=== PATIENT | male | born 1950 | race Hispanic/Latino ===

== ENCOUNTER 2017-03-09 07:08 | Outpatient (CLI) | payer MEDICARE, MEDICAID | END 2017-03-09 07:09 | disposition home or self-care (01) | LOC: BICMRI 07:08 | PROVIDERS: ATTEND Nurse Practitioner Family | DX: M25.551 Pain in right hip (principal); M54.5 Low back pain; M79.2 Neuralgia and neuritis, unspecified; M48.14 Ankylosing hyperostosis [Forestier], thoracic region; M99.82 Other biomechanical lesions of thoracic region; M16.11 Unilateral primary osteoarthritis, right hip; Z98.1 Arthrodesis status ==

== ENCOUNTER 2018-08-03 14:59 | Outpatient (CLI) | payer MEDICARE, MEDICAID ==
--- NOTE | 2018-08-03 15:47 | MRI ---
MRI Lumbar Spine WO Con History: [M 25.552 left hip pain. M 79.2 neuralgia and neuritis] Comparison: CT abdomen and pelvis 2017 Findings: Mild bilateral symmetric posterior paraspinal muscle atrophy. No hydronephrosis. Aortic con tour is not aneurysmal. No retroperitoneal adenopathy. There is straightening of the lumbar spine with loss of normal lumbar lordosis. The conus medullaris terminates near the superior endplate of L1. No marrow infiltrative process. Levels are as follows: L1/L2: Circumferential disc osteophyte complex. This does have some right-sided interosseous bridging and the extraforaminal zone. Moderate right neural foraminal narrowing due to this osseous bridge. L2/L3: Moderate degenerative disc space height loss. Circumferential disc osteophyte complex. Minimal effacement of the ventral CSF space. A right extraforaminal osseous bridge causes moderate right neural foraminal narrowing with abutment of the exiting right nerve root. L3/L4: Disc desiccation. Low-grade circumferential disc osteophyte complex. Moderate facet arthrosis. Osseous bridge on the right causes moderate right neural foraminal narrowing with abutment of the exiting nerve root. L4/L5: Mild degenerative disc space height loss. Moderate to severe right and moderate left facet art hropathy. Right extraforaminal osseous bridge causes moderate narrowing of the right neural foramen with abutment of the exiting nerve root. Only mild left neural foraminal narrowing. L5/S1: Low-grade degenerative disc space height loss. Left subfrontal disc osteophyte complex complex causes mild left neural foraminal narrowing. Impression: Straightened lumbar spine with loss of normal lordosis likely sequelae of diffuse idiopat hic skeletal hyperostosis on the right. There is osseous bridging which does cause multilevel neural foraminal narrowing with nerve root abutment.
== END 2018-08-03 15:00 | disposition home or self-care (01) ==
LOC: TBSIIMAG 14:59
PROVIDERS: ATTEND Nurse Practitioner Acute Care
DX: M25.552 Pain in left hip (principal); M25.551 Pain in right hip; G90.511 Complex regional pain syndrome I of right upper limb; M79.2 Neuralgia and neuritis, unspecified; M48.061 Spinal stenosis, lumbar region without neurogenic claudication; M48.07 Spinal stenosis, lumbosacral region
CPT/HCPCS: 72148

== ENCOUNTER 2019-05-28 12:11 | Observation (INO) | payer MEDICARE, MEDICAID ==
[2019-05-28 12:44] LABS: #Eosinphils 0.6 thou/uL (0.0-0.7); #Lymphocytes 1.9 thou/uL (1.20-3.40); #Monocytes 0.6 thou/uL (0.11-0.59); #Neutrophils 6.6 thou/uL (1.40-6.50); %Basophils 0.1 % (0.0-1.0); %Eosinophils 6.1 % (0.0-10.0); %Monocytes 6.2 % (0.0-10.0); %Neutrophils 67.6 % (42.0-75.0); Mean Corpuscular HGB CONC 34.2 g/dL (32.0-36.0); Mean Corpuscular Hemoglobin 28.3 pg (27.0-31.0); Mean Corpuscular Volume 82.8 fL (78.0-98.0); Mean Platelet Volume 8.1 fL (7.4-10.4); Platelet Count 243 thou/uL (130-400); RBC Distribution Width 11.9 % (11.5-14.5); Red Blood Cell (RBC) Count 4.58 mill/uL (4.70-6.10); White Blood Cell (WBC) Count 9.7 thou/uL (4.8-10.8)
[2019-05-28 13:06] LABS: ALT (SGPT) 13 U/L (8-55); AST (SGOT) 12 U/L (5-34); Albumin 4.1 g/dL (3.4-4.8); Alkaline Phosphatase 99 U/L (40-110); Anion Gap 13 mmol/L (10-20); BUN (Urea Nitrogen) 12 mg/dL (8.4-25.7); Bilirubin, Total 0.6 mg/dL (0.2-1.2); Calc. Creatinine Clearance 0 mL/min (70-130); Calcium 8.9 mg/dL (7.8-10.44); Carbon Dioxide 26 mmol/L (23-31); Chloride 98 mmol/L (98-107); Estimated GFR-MDRD 65; Globulin 3.6 g/dL (2.4-3.5); Glucose 217 mg/dL (80-115); Potassium 3.8 mmol/L (3.5-5.1); Protein, Total 7.7 g/dL (5.8-8.1); Sodium 133 mmol/L (136-145)
--- NOTE | 2019-05-28 13:27 | RAD ---
XR Chest Pa Lat STANDARD History: Chest pain Comparison: Chest radiograph 2017 Findings: Lungs are clear. No pneumothorax or effusion. Cardiac silhouette and mediastinal contours a re similar. No acute osseous abnormality. Impression: No acute intrathoracic abnormality.
[2019-05-28] MEDS ORDERED: Nitroglycerin 0.4 MG TAB 1 EACH ONE (14:41)
[2019-05-28] MEDS ORDERED: Aspirin 325 MG TAB ONE (14:41)
[2019-05-28 16:24] LABS: Troponin I Less than 0.010 ng/mL (< 0.028)
[2019-05-28 17:26] VITALS: BMI 33.4
[2019-05-28 19:23] LABS: Troponin I 0.012 ng/mL (< 0.028)
[2019-05-28] MEDS: Famotidine 20 MG TAB PO SCH (20:48)
[2019-05-28 21:25] LABS: Troponin I Less than 0.010 ng/mL (< 0.028)
--- NOTE | 2019-05-28 23:01 | HP ---
CHIEF COMPLAINT: Chest pain. HISTORY OF PRESENT ILLNESS: Mr. Marcus is a 69-year-old male with past medical history of hypertension, hyperlipidemia, diabetes mellitus, among others, presented to the emergency room with substernal chest pain that started earlier this morning. Also, the patient has been having lightheadedness. Denies shortness of breath or palpitations or syncope. Workup in the emergency room including initial troponin and EKG, no acute findings. Given the patient's presentation and risk factors, the patient is being admitted to the hospital for further management. PAST MEDICAL HISTORY: As mentioned above in history of present illness. PAST SURGICAL HISTORY: 1. Left hip leigh placement. 2. Right elbow surgery. SOCIAL HISTORY: The patient drinks socially. The patient smokes cigarettes daily about one pack a day. FAMILY HISTORY: Reviewed and noncontributory. ALLERGIES: NO KNOWN ALLERGIES. HOME MEDICATIONS: Please see home medication reconciliation form for updated medications. REVIEW OF SYSTEMS: Review of 14 systems negative except what is mentioned in the history of present illness. PHYSICAL EXAMINATION: GENERAL: The patient is awake, alert, does not appear to be in acute distress. VITAL SIGNS: Blood pressure is 140/78, pulse is 81, respiratory rate is 17, pulse oximetry is 100% on room air. HEAD: Normocephalic, atraumatic. NECK: Supple. No JVD. CHEST: Fair bilateral air entry. HEART: S1, S2. Regular. ABDOMEN: Soft, nontender. Bowel sounds present. NEUROLOGIC: Awake, alert, oriented x3. PSYCHIATRIC: Normal mood. EXTREMITIES: No clubbing or cyanosis. LABORATORY DATA: WBC 9.7, hemoglobin 13, platelets 243. Sodium 133, potassium 3.8, BUN is 12, creatinine 1.1. Chest x-ray, no acute findings. ASSESSMENT AND PLAN: 1. Acute chest pain, rule out acute coronary syndrome. 2. Hypertension. 3. Hyperlipidemia. 4. Diabetes mellitus with hyperglycemia. 5. Severe smoker. PLAN: 1. Admit. 2. Telemetry monitoring. 3. Aspirin. 4. Serial troponins. 5. We will consider stress testing in a.m. 6. Reconcile home medications. 7. DVT prophylaxis as appropriate. 8. Expected length of stay at least 1 midnight if the patient is stable and further workup negative. Job ID: [id number]
[2019-05-29] MEDS: Acetaminophen 325 MG TAB PO PRN ×2 (02:50→13:23)
[2019-05-29] MEDS ORDERED: Aspirin 300 MG Suppository PR SCH (09:00)
[2019-05-29] MEDS ORDERED: ADENOSINE 60 MG/20 ML VIAL ONE (09:05)
--- NOTE | 2019-05-29 11:17 | NM ---
EXAM: Nuclear Medicine Cardiac SPECT with EF and wall motion: HISTORY: Protocol: Exam was performed using adenosine protocol. The patient is injected with 29.3 millicuries of technetium 99m sestamibi intravenously for stress im ages. The patient is injected with 10.5 millicuries of technetium 99 sestamibi intravenously for resting im ages. Multiple SPECT images are performed in the short axis, vertical long axis, and horizontal long axis. FINDINGS: No scan evidence for infarct or ischemia. TID:1.18 LHR:0.31 EDV:95 mL EF:60% Wall motion:Normal IMPRESSION: Unremarkable cardiac SPECT with EF and wall motion.
[2019-05-29 12:12] VITALS: TEMP 97.9
[2019-05-29] MEDS ORDERED: Lisinopril 5 MG TAB PO SCH ×2 (12:15→21:00)
[2019-05-29] MEDS ORDERED: cloNIDine 0.1 MG TAB PO PRN (12:57)
[2019-05-29] MEDS: Famotidine 20 MG TAB PO SCH (13:16)
[2019-05-29 14:21] VITALS: BP 168/78
--- NOTE | 2019-05-29 18:48 | DIS ---
DATE OF ADMISSION: 05/28/2019 DATE OF DISCHARGE: 05/29/2019 DISCHARGE DISPOSITION: Home with home health care. DISCHARGE MEDICATIONS: 1. Clonidine as needed. 2. Glipizide 2.5 mg daily. 3. Lisinopril 5 mg b.i.d. The patient was seen on the day of discharge. Denies any new complaints. No chest pain, shortness of breath, or palpitations reported. BRIEF HOSPITAL COURSE: The patient is a 69-year-old male with diabetes mellitus type 2, hypertension, hyperlipidemia, and medication noncompliance, presented to the emergency room with chest discomfort. Please refer to the history and physical for further details. The patient was admitted to the hospital with a diagnosis of chest discomfort, rule out acute coronary syndrome. His serial troponins were negative. He underwent a Cardiolite stress test that was negative for reversible ischemia. Ejection fraction was 60% without any wall motion abnormality. The patient was found to have uncontrolled blood pressure with blood pressure of 188/77. He has been started on low-dose lisinopril. His blood sugar on admission was 217. Low-dose glipizide was started as well. Please note, the patient was on no medication when he got admitted. He was extensively counseled on diabetes as well as blood pressure management. FINAL DIAGNOSES: 1. Chest discomfort acute coronary syndrome ruled out. 2. Hypertension, uncontrolled. 3. Hyperlipidemia. 4. Diabetes mellitus, type 2. 5. Tobacco dependence. 6. Hyponatremia, present on admission. 7. Chronic kidney disease, stage 2. 8. Obesity with a BMI of 32.7. 9. Anemia suspected due to nutritional deficiency. 10. The patient understands the above plan of care. Job ID: [id number]
[2019-05-30] MEDS ORDERED: glipiZIDE 5 MG TAB PO SCH (07:30)
== END 2019-05-29 15:11 | disposition home health service (06) ==
LOC: ERS 12:11 → 2SW 15:12
PROVIDERS: ADMIT Internal Medicine; ATTEND Internal Medicine
DX: R07.89 Other chest pain (principal); E78.5 Hyperlipidemia, unspecified; E11.22 Type 2 diabetes mellitus with diabetic chronic kidney disease; I12.9 Hypertensive chronic kidney disease with stage 1 through stage 4 chronic kidney disease, or unspecified chronic kidney disease; E11.65 Type 2 diabetes mellitus with hyperglycemia; N18.2 Chronic kidney disease, stage 2 (mild); E87.1 Hypo-osmolality and hyponatremia; D64.9 Anemia, unspecified; F17.210 Nicotine dependence, cigarettes, uncomplicated; E66.9 Obesity, unspecified; Z68.32 Body mass index [BMI] 32.0-32.9, adult; Z98.890 Other specified postprocedural states; Z79.899 Other long term (current) drug therapy
CPT/HCPCS: 71046; 78452; 80053; 82962; 83880; 84484 ×2; 85025; 87804 ×2; 93005; 93017; 99285; A9500; G0378 ×3; 36415; 36416; 99214; G0463; J0153

== ENCOUNTER 2022-05-18 23:19 | Emergency (ER) | payer MEDICAID, MEDICARE, OTHER ==
[2022-05-19] MEDS ORDERED: Morphine 4 MG/ML VIAL ONE (00:52)
== END 2022-05-19 02:02 | disposition home or self-care (01) ==
LOC: ERS 23:19
DX: M25.551 Pain in right hip (principal); E11.9 Type 2 diabetes mellitus without complications; E78.00 Pure hypercholesterolemia, unspecified; I10 Essential (primary) hypertension; F17.210 Nicotine dependence, cigarettes, uncomplicated
CPT/HCPCS: 96372; J2270